=== PATIENT | female | born 2000 | race Caucasian/White ===

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

== ENCOUNTER → 2019-09-17 16:38 | Outpatient (CLI) | payer OTHER, SELFPAY ==
[2019-09-17 16:04] VITALS: BMI 23.8
[2019-09-17 17:18] LABS: Absolute Lymphocyte Count 2.53 X10^3/uL (0.83-4.51); Basophil# 0.03 X10^3/uL; Basophil% 0.3 % (0-1); Eosinophil# 0.07 X10^3/uL; Eosinophils% 0.8 % (0-5); Hemoglobin 11.1 g/dL (12.0-15.0); Lymphocyte # 2.53 X10^3/ul (4.0); Lymphocyte % 27.7 % (19-41); Mean Corp Hgb Conc 32.6 g/dL (32-36); Mean Corpuscular Hgb 29.3 pg (27.0-32.0); Mean Corpuscular Volume 89.7 fL (81-99); Mean Platelet Vol. 10.6 fl (6.2-12.0); Monocyte# 0.45 X10^3/uL; Monocyte% 4.9 % (0-10); NRBC Flagged by Analyzer 0 % (0-5); Neutrophil # 6.03 X10^3/uL (2.7-7.7); Neutrophil % 66.1 % (47-70); Platelet Count 279 K/mm3 (150-450); RBC Distribution Width CV 13.3 % (11.6-14.6); RBC Distribution Width SD 43.8 fl (35.1-43.9); Red Blood Count 3.79 M/mm3 (4.2-5.4); White Blood Count 9.1 K/mm3 (4.4-11.0)
[2019-09-17 17:26] LABS: Amphetamine Urine VISTA NEGATIVE (<1000 ng/mL); Barbiturate Urine VISTA NEGATIVE (< 200 ng/mL); Benzodiazepine Urine VISTA NEGATIVE (< 200 ng/mL); Cocaine Urine VISTA NEGATIVE (< 300 ng/mL); Ecstacy Urine VISTA NEGATIVE (< 500 ng/mL); Methadone Urine VISTA NEGATIVE (< 300 ng/mL); PCP Urine VISTA NEGATIVE (< 25 ng/mL); THC Urine VISTA NEGATIVE (< 50 ng/mL); Vista UDS pH Range 6
[2019-09-17 17:55] LABS: NATERA MAILED SPECIMEN
[2019-09-17 21:57] LABS: Chlamydia Trachomatis by PCR Negative (Negative); Neisserai gonorrhoeae by PCR Negative (Negative); Probe Check PASS; Specimen Processing Control PASS
[2019-09-17 21:58] LABS: Sample Adequacy Control PASS
[2019-09-18 09:46] LABS: HIV - WCH Non-Reactive (Nonreactive); Hepatitis B Surface Antigen Non-Reactive (Nonreactive); Hepatitis C Antibody Non-Reactive (Nonreactive); Rubella IgG 48.6 IU/mL
[2019-09-19 21:57] LABS: Rapid Plasmin Reagin (RPR) NONREACTIVE (NONREACTIVE)
== END ==
LOC: LABSPEC 16:38 → LAB 16:50
PROVIDERS: PCP Family Medicine; Visit Provider Obstetrics & Gynecology
DX: Z34.81 Encounter for supervision of other normal pregnancy, first trimester (principal); Z31.430 Encounter of female for testing for genetic disease carrier status for procreative management
CPT/HCPCS: 36415; 80307; 85025; 86592; 86703; 86762; 86803; 86850; 87340; 87491; 87591

== ENCOUNTER 2020-11-04 09:00 | Emergency (ER) | payer OTHER, MEDICAID, SELFPAY ==
[2019-10-19 15:33] VITALS: BMI 23.8
[2020-11-04 09:00] VITALS: BP 106/91; PULSE 100; RESP 16; TEMP 36.1; O2SAT 98; BMI 31.4
--- NOTE | 2020-11-04 09:12 | EX.ED.UPPERE ---
HPI History of Present Illness Chief Complaint: Upper Extremity Injury Informant: patient Narrative Narrative: 20-year-old female presents the emergency room with pain in the right side of her neck and shoulder. Patient states she went to bed last night feeling fine. She woke with pain in the right neck. She notes pain with movement of the neck to the right. Limited range of motion of the neck. She states that she was nauseous from the pain but that has gotten better. She denies any recent trauma or strenuous activity. No prior recurrence. She reports that hand feels fine [facility] Medical History (Updated 11/04/20 @ 09:[address] Byron Kurtz DO) Cleft lip Tachycardia Home Medications ondansetron HCl 4 mg tablet 4 mg PO Q4H #60 tab 09/17/19 [Rx Last Taken Unknown] pediatric multivitamin 1 tab PO DAILY 09/17/19 [History Last Taken Unknown] cyclobenzaprine 10 mg PO TID PRN #15 tablet 11/04/20 [Rx Last Taken Unknown] Allergy/AdvReac Type Severity Reaction Status Date / Time No Known Allergies Allergy Verified 10/19/19 15:33 Family History Father Diabetes Surgical History s/p cleft lip repair Social History Smoking Status: Never smoker alcohol intake: never substance use type: does not use caffeine: No what type of physical activity do you participate in: walking frequency: 3-4 times per week seatbelt use: always do you feel safe at home: Yes additional social history: [employer] [address] Patient goes to [facility] ED Constitutional Constitutional ED: Denies chills or weight loss Eyes Eyes: Denies change in vision or diplopia ENT ENT ED: Denies ear pain, rhinorrhea or sore throat Cardiovascular Cardiovascular: Denies chest pain, orthopnea, palpitations or racing heartbeat Respiratory/Chest Respiratory/Chest: Denies cough, dyspnea or orthopnea Gastrointestinal Gastrointestinal: Denies abdominal pain, diarrhea, nausea or vomiting Genitourinary Genitourinary ED: Denies dysuria, hematuria or urinary frequency Musculoskeletal Musculoskeletal: Reports neck pain; Denies arthralgias or myalgias Integumentary Denies abscess or rash Neurologic Neurologic: Denies headache(s) or weakness Psychiatric Psychiatric: Denies anxiety, depression, suicidal ideation or suicidal thoughts Endocrine Endocrinology: Denies polydipsia, polyphagia or polyuria Allergic/Immunologic Allergic/Immunologic ED: Denies mouth swelling, tongue swelling or urticaria EXAM Physical Exam Const Vital Signs: 11/04/20 09:00 Temperature 97.0 F L Temperature Source Temporal Pulse Rate 100 Respiratory Rate 16 Blood Pressure 106/91 H Blood Pressure Mean 96 Pulse Ox 98 Oxygen Delivery Method Room Air Positive well nourished and well developed General Appearance ED: well developed HEENT Reports normocephalic, head/scalp atraumatic and moist mucous membranes Eyes PERRL and EOMs intact bilaterally Neck no lymphadenopathy and no JVD Neck Narrative: Patient has point tenderness along the suboccipital muscles and the trapezius. Limited range of motion of the neck particularly to the right. Arm appears neurovascular intact Resp normal respiratory effort and clear to auscultation bilaterally Cardio regular rate, regular rhythm and no murmurs GI normal to inspection, nondistended, normoactive bowel sounds and non-tender Palpation: soft Back/Spine no CVA tenderness and normal ROM Extremity normal to inspection General Extremety ED: Negative for edema General Extremity: Negative for edema Neuro oriented x3 and CN's II-XII intact bilaterally Sensorium / Orientation: alert Motor Exam: strength 5/5 throughout Psych mental status grossly normal Mood & Affect: Negative for depressed or tearful Skin no rashes or lesions noted and no wounds MDM MDM MDM Narrative Medical decision making narrative: Patient appears to have muscular spasm. Will treat with anti-inflammatories and muscle relaxant. As needed soft collar. Instructions for heat gentle stretching. Discharge Plan Triage Chief Complaint: Upper Extremity Injury ED Provider: Byron Kurtz Dx/Rx/DC Orders Clinical Impression: Spasm of cervical paraspinous muscle Instructions: ED Neck Spasm, No Trauma Prescriptions: New cyclobenzaprine [cyclobenzaprine] 10 MG tablet 10 mg PO TID PRN (Reason: Muscle Spasm) Qty: 15 RF: 0 No Action pediatric multivitamin [Flintstones Multivitamin] Tablet,Chewable 1 tab PO DAILY RF: 0 ondansetron HCl [Zofran] 4 mg tablet 4 mg PO Q4H Qty: 60 RF: 3 Primary Care Provider: Betsy Glynn Referrals: Betsy Glynn, PA-C [Primary Care Provider] - As Needed Disposition Disposition: Home, Self Care
[2020-11-04 09:35] VITALS: PULSE 84; RESP 16; O2SAT 98
--- NOTE | 2020-11-04 09:35 | ED.RN ---
THIS NURSE REVIEWED D/C INSTRUCTIONS WITH PT. PT VERBALIZED UNDERSTANDING OF INSTRUCTIONS. PT DENIES FURTHER NEEDS OR QUESTIONS AT THIS TIME. PT AMBULATES FROM ROOM ON OWN WITHOUT ASSISTANCE FROM STAFF
== END 2020-11-04 09:36 | disposition home or self-care (01) ==
LOC: ED 09:29
PROVIDERS: Emergency Provider Emergency Medicine; PCP Family Medicine
DX: M62.838 Other muscle spasm (principal)
CPT/HCPCS: 99282